=== PATIENT | male | born 1970 | race Caucasian/White ===

== ENCOUNTER 2016-09-05 09:53 | Emergency (ER) | payer SELFPAY ==
[2016-09-05 10:06] VITALS: BP 137/80; PULSE 96; RESP 18; TEMP 99; O2SAT 96
[2016-09-05] MEDS ORDERED: BACT800T5 PO (11:13)
[2016-09-05] MEDS ORDERED: LOTR15T TOPICAL (11:13)
[2016-09-05] MEDS ORDERED: CEPH-460 PO (11:13)
--- NOTE | 2016-09-05 11:13 | PD ---
HPI Chief Complaint: Skin Problem Time Seen by Provider: 11:11 Travel History International Travel<30 days: No Contact w/Intl Traveler<30days: No Traveled to known affect area: No History of Present Illness HPI 46-year-old male presents versus primary for evaluation of a wound on his right foot with associated erythema as well as a chafing rash in his groin. Patient states that he has been walking long distances and these resulted from doing so. Denies any fever or chills. Denies any abdominal pain. No nausea or vomiting. No other symptoms to report. PFSH Past Medical History Medical History: Denies Significant Hx Social History Alcohol Use: No Tobacco Use: No Substance Use: No Allergies-Medications (Allergen,Severity, Reaction): Coded Allergies: Penicillin (Verified Allergy, Severe, Anaphylaxis, 09/05/16) Reported Meds & Prescriptions Reported Meds & Active Scripts Active Lotrisone Topical (Betamethasone/Clotrimazole) 1-0.05% Cream 1 Applic TOPICAL BID Keflex (Cephalexin) 500 Mg Capsule 500 Mg PO Q6H 5 Days Bactrim DS (Sulfamethoxazole-Trimethoprim) 800-160 Mg Tab 1 Tab PO BID Review of Systems Except as stated in HPI: all other systems reviewed are Neg Physical Exam Narrative GENERAL: Well-nourished, unkempt male patient, in no acute distress SKIN: Focused skin assessment warm/dry. Recent a meter in diameter ruptured blister on the medial aspect of the right foot. There is erythema extending onto the dorsal aspect of the foot. Patient has excoriation in the bilateral groin with a well demarcated border. No crepitus. No significant induration. HEAD: Normocephalic. EYES: No scleral icterus. No injection or drainage. NECK: Supple, trachea midline. No JVD or lymphadenopathy. CARDIOVASCULAR: Regular rate and rhythm without murmurs, gallops, or rubs. RESPIRATORY: Breath sounds equal bilaterally. No accessory muscle use. GENITOURINARY: Testes descended bilaterally without evidence of rotation. There is mild excoriation posterior to the ground. No crepitus. No induration. No tunneling. No fluctuation.. GASTROINTESTINAL: Abdomen soft, non-tender, nondistended. MUSCULOSKELETAL: No cyanosis, or edema. BACK: Nontender without obvious deformity. No CVA tenderness. Data Data Last Documented VS Vital Signs Date Time Temp Pulse Resp B/P Pulse Ox O2 Delivery O2 Flow Rate FiO2 09/05/16 10:06 99.0 96 18 137/80 96 Room Air MDM Medical Decision Making Medical Screen Exam Complete: Yes Emergency Medical Condition: Yes Medical Record Reviewed: Yes Differential Diagnosis Blister versus abscess versus cellulitis versus fungal infection versus irritation versus excoriation Narrative Course 46-year-old male presents to emergency department for evaluation. Patient has findings consistent with a blister and associated cellulitis as well as fungal infection and spine. Patient will be started on oral antibiotic as well as provided a antifungal cream prescription. He is encouraged to follow-up primary care provider. He agrees to return immediately with any acute worsening symptoms. Diagnosis Primary Impression: Blister of foot, right, infected Qualified Code: S90.821A - Blister of foot, right, infected, initial encounter Additional Impression: Jock itch Referrals: Primary Care Physician Patient Instructions: Cellulitis (GEN), General Instructions, Jock Itch (ED) Additional Instructions: Keep the wound and her foot clean and dry Make sure your washing your groin, pat it dry, and allowed to air out Cotton underwear is recommended Follow-up with primary care provider Return immediately with any acute worsening of symptoms Med/Other Pt SpecificInfo: Prescription(s) given Scripts Betamethasone-Clotrimazole Topical (Lotrisone Topical)1-0.05% Cream1 Applic TOPICAL BID #45 GM Ref 0 Prov:Trish Siegel 09/05/16 Cephalexin (Keflex)500 Mg [id number] Mg PO Q6H 5 Days Ref 0 Prov:Trish Siegel 09/05/16 Sulfamethoxazole-Trimethoprim (Bactrim DS)800-160 Mg Tab1 Tab PO BID #20 TAB Ref 0 Prov:Trish Siegel 09/05/16 Disposition: 01 DISCHARGE HOME Condition: Stable Trish Siegel Sep 05, 2016 11:13
== END 2016-09-05 11:37 | disposition home or self-care (01) ==
LOC: NEPK 09:53
DX: S90.821A Blister (nonthermal), right foot, initial encounter (principal); B35.6 Tinea cruris; Z79.899 Other long term (current) drug therapy; Z88.0 Allergy status to penicillin; Y93.01 Activity, walking, marching and hiking
CPT/HCPCS: 99284